=== PATIENT | male | born 1965 | race Caucasian/White ===

== ENCOUNTER 2017-12-30 03:38 | Inpatient (IN) | END 2018-01-09 19:53 | DRG 65 ==

== ENCOUNTER 2018-02-12 23:37 | Inpatient (IN) | END 2018-02-16 18:50 | disposition home or self-care (01) | DRG 871 ==

== ENCOUNTER 2018-03-04 02:22 | Inpatient (IN) | END 2018-03-06 16:00 | disposition home or self-care (01) | DRG 250 ==

== ENCOUNTER 2018-04-14 09:27 | Emergency (ER) | payer OTHER ==
[~2018-04-14] VITALS: Wt 84.2 kg
[~2018-04-14 09:27] MED LIST: ASPI-831 PO; ATOR-2 PO; BENA40TA56 PO; CALC-74 PO; CLOP75TA28 PO; GABA300C16 PO; GLIM4TAB PO; ISOS30TA67 PO; LEVO750T25 PO; METO-429 PO; PARO-37 PO; PIOG15TA67 PO; SITA1TBM7 PO
[2018-04-14 09:30] VITALS: BP 100/57; PULSE 82; RESP 18
[2018-04-14] MEDS ORDERED: OXYMETAZOLINE 0.05% 15 ML NAS SPRAY NASAL ONE (10:00)
--- NOTE | 2018-04-14 10:04 | ERD ---
ER Documentation Chief Complaint Chief Complaint EPISTAXIS, RIGHT NOSTRIL, NOT ACTIVELY BLEEDING NOW HPI 53-year-old male, with history of CVA, currently on anticoagulation, presents to the emergency department, complaining of sudden onset of right nasal bleeding. No history of trauma. The patient denies headaches, no runny nose, no cough. ROS All systems reviewed and are negative except as per history of present illness. Medications Home Meds Active Scripts Aspirin (Aspirin) 81 Mg Chew, 81 MG PO DAILY for 30 Days, #30 TAB 3 Refills Prov:SHARON MORENO 03/06/18 Metoprolol Tartrate* (Lopressor*) 50 Mg Tab, 50 MG PO BID for 30 Days, #60 TAB 3 Refills Prov:SHARON MORENO 03/06/18 Isosorbide Mononitrate* (Isosorbide Mononitrate*) 30 Mg Tab.er.24h, 30 MG PO DAILY for 30 Days, #30 3 Refills Prov:SHARON MORENO 03/06/18 Clopidogrel Bisulfate (Clopidogrel) 75 Mg Tablet, 75 MG PO DAILY for 30 Days, #30 TAB 3 Refills Prov:SHARON MORENO 03/06/18 Levofloxacin* (Levaquin*) 750 Mg Tablet, 750 MG PO DAILY for 2 Days, #2 TAB Prov:SHARON MORENO 03/06/18 Gabapentin* (Gabapentin*) 300 Mg Capsule, 300 MG PO BID for 30 Days, #60 CAP 1 Refill Prov:SHARON MORENO 03/06/18 Benazepril Hcl* (Benazepril Hcl*) 40 Mg Tablet, 40 MG PO DAILY, #30 TAB 3 Refills Prov:SHARON MORENO 03/06/18 Atorvastatin* (Atorvastatin*) 80 Mg Tablet, 80 MG PO QHS, #30 TAB 3 Refills Prov:SHARON MORENO 03/06/18 Calcium Carbonate-Vit D3-Minerals (Calcium 600 + D + Minerals) 1 Each Tablet, 1 TAB PO DAILY for 30 Days, #30 TAB Prov:SHARON MORENO 03/06/18 Paroxetine Hcl* (Paroxetine*) 20 Mg Tablet, 20 MG PO DAILY for 30 Days, #30 TAB 1 Refill Prov:SHARON MORENO 03/06/18 Reported Medications Pioglitazone Hcl* (Pioglitazone Hcl*) 15 Mg Tablet, 15 MG PO DAILY, TAB 02/13/18 Glimepiride* (Glimepiride*) 4 Mg Tablet, 4 MG PO WITH BREAKFAST, TAB 02/13/18 Sitagliptin Phos-Metformin Hcl (Janumet XR) 100-1,000 Mg Tbmp.24hr, 1 TAB PO WITH DINNER, #30 TAB 02/13/18 Allergies Allergies: Coded Allergies: No Known Allergy (Unverified , 02/13/18) PMhx/Soc History of Surgery: No Anesthesia Reaction: No Hx Neurological Disorder: Yes (CVA) Hx Respiratory Disorders: No Hx Cardiac Disorders: Yes (HTN) Hx Psychiatric Problems: No Hx Miscellaneous Medical Probl: No Hx Alcohol Use: No Hx Substance Use: No Hx Tobacco Use: No Physical Exam Vitals Vital Signs Date Temp Pulse Resp B/P (MAP) Pulse Ox O2 O2 Flow FiO2 Time Delivery Rate 04/14/18 97.8 82 18 100/57 99 09:30 (71) Physical Exam Const: No acute distress Head: Atraumatic Eyes: Normal Conjunctiva ENT: Right nostril with septal excoriation with mild bleeding. Normal External Ears and Mouth. Neck: Full range of motion. No meningismus. Resp: Clear to auscultation bilaterally Cardio: Regular rate and rhythm, no murmurs Abd: Soft, non tender, non distended. Normal bowel sounds Skin: No petechiae or rashes Back: No midline or flank tenderness Ext: No cyanosis, or edema Neur: Awake and alert Psych: Normal Mood and Affect Results 24 hrs Current Medications Medications Dose Sig/Alejandra Start Time Status Last (Trade) Ordered Route PRN Stop Time Admin Dose Reason Admin 2 spray ONCE ONCE 04/14/18 DC Oxymetazoline NASAL 10:00 HCl (Afrin 04/14/18 10:01 [place]) Procedures/MDM Differential diagnosis include but not limited to: trauma, vessel fragility, rhinosinusitis, neoplasm, coagulopathy. During the ED course the patient remained stable, no new complaints. The bleeding was controlled with a Rhino Rocket placed on the right nostril without complications. The patient is stable to be treated outpatient and will be discharged home with instructions to follow up in 48 hours for nasal packing removal. If symptoms persist, worsen or new symptoms develop, then patient should return to the ED immediately. Instructions explained and given directly by me to the patient with acknowledgment and demonstrated understanding. Disclaimer: Inadvertent spelling and grammatical errors are likely due to EHR/dictation software use and do not reflect on the overall quality of patient care. Also, please note that the electronic time recorded on this note does not necessarily reflect the actual time of the patient encounter. Departure Diagnosis: Primary Impression: Epistaxis Condition: Stable Additional Instructions: Thank you very much for allowing us to participate in your care. Your health and safety is our top priority at [facility]. Call your primary care doctor TOMORROW for an appointment during the next 2-4 days and bring all the information and medications prescribed. Have prescriptions filled and follow precisely the directions on the label. If the symptoms get worse and your provider is unavailable, return to the Emergency Department immediately. YANETH VALDIVIA MD Apr 14, 2018 10:04
== END 2018-04-14 10:22 | disposition home or self-care (01) ==
LOC: FTE 09:27
DX: R04.0 Epistaxis (principal); I10 Essential (primary) hypertension; Z79.82 Long term (current) use of aspirin; Z86.73 Personal history of transient ischemic attack (TIA), and cerebral infarction without residual deficits
CPT/HCPCS: 30903; Z7502; Z7610

== ENCOUNTER 2018-10-24 08:03 | Day surgery (SDC) | payer OTHER ==
[~2018-10-24] VITALS: Ht 182.9 cm; Wt 87.4 kg
[2018-10-24] MEDS ORDERED: METF500T24 PO (09:06)
[2018-10-24] MEDS ORDERED: METO-335 PO (09:06)
[2018-10-24] MEDS ORDERED: SITA100T11 PO (09:06)
[2018-10-24] MEDS ORDERED: GLIM2TAB PO (09:06)
[2018-10-24 09:16] VITALS: Ht 182.9 cm; Wt 87.4 kg
[2018-10-24 09:23] VITALS: BP 148/92; PULSE 89; RESP 22
[2018-10-24] MEDS ORDERED: PROPOFOL 60 ML ONE (09:23)
[2018-10-24] MEDS ORDERED: LIDOCAINE 100 MG SYRINGE ONE (09:23)
[2018-10-24] MEDS ORDERED: PROPOFOL 200 MG INJ ONE (09:23)
[2018-10-24] MEDS ORDERED: FENTAnyl 50 MCG/ML VIAL ONE (09:24)
--- NOTE | 2018-10-24 09:57 | PREAC ---
Date/Time of Note Date/Time of Note DATE: 10/24/18 TIME: 09:20 Anesthesia Eval and Record Evaluation Time Pre-Procedure Interview DATE: 10/24/18 TIME: 09:20 Age 53 Sex male NPO: 8 hrs Preoperative diagnosis REFLUX, CHRONIC DIARRHEA Planned procedure EGD, COLONOSCOPY Past Medical History Past Medical History: Includes Cardio: HTN, Dyslipidemia, CAD Endo: Diabetes (FBS:95) Neuro: CVA GI: Morbid obesity Surgery & Anesthesia Issues No known issue Meds Anticoagulation: No Beta Issa within 24 hr: No Reason Beta Issa not given: Pt. not on B-Issa Active Scripts Aspirin (Aspirin) 81 Mg Chew, 81 MG PO DAILY for 30 Days, #30 TAB 3 Refills Prov:SHARON MORENO 03/06/18 Isosorbide Mononitrate* (Isosorbide Mononitrate*) 30 Mg Tab.er.24h, 30 MG PO DAILY for 30 Days, #30 3 Refills Prov:SHARON MORENO 03/06/18 Clopidogrel Bisulfate (Clopidogrel) 75 Mg Tablet, 75 MG PO DAILY for 30 Days, #30 TAB 3 Refills Prov:SHARON MORENO 03/06/18 Gabapentin* (Gabapentin*) 300 Mg Capsule, 300 MG PO BID for 30 Days, #60 CAP 1 Refill Prov:SHARON MORENO 03/06/18 Atorvastatin* (Atorvastatin*) 80 Mg Tablet, 80 MG PO QHS, #30 TAB 3 Refills Prov:SHARON MORENO 03/06/18 Calcium Carbonate-Vit D3-Minerals (Calcium 600 + D + Minerals) 1 Each Tablet, 1 TAB PO DAILY for 30 Days, #30 TAB Prov:SHARON MORENO 03/06/18 Paroxetine Hcl* (Paroxetine*) 20 Mg Tablet, 20 MG PO DAILY for 30 Days, #30 TAB 1 Refill Prov:SHARON MORENO 03/06/18 Reported Medications Metformin Hcl* (Metformin Hcl*) 500 Mg Tablet, 500 MG PO WITH BREAKFAST DINNE, #60 TAB 10/24/18 Glimepiride* (Glimepiride*) 2 Mg Tablet, 2 MG PO BID, TAB 10/24/18 Metoprolol Succinate* (Toprol XL*) 25 Mg Tab.sr.24h, 25 MG PO DAILY, #30 TAB 10/24/18 Sitagliptin* (Januvia*) 100 Mg Tablet, 100 MG PO DAILY, #30 TAB 10/24/18 Discontinued Reported Medications Pioglitazone Hcl* (Pioglitazone Hcl*) 15 Mg Tablet, 15 MG PO DAILY, TAB 02/13/18 Glimepiride* (Glimepiride*) 4 Mg Tablet, 4 MG PO WITH BREAKFAST, TAB 02/13/18 Sitagliptin Phos-Metformin Hcl (Janumet XR) 100-1,000 Mg Tbmp.24hr, 1 TAB PO WITH DINNER, #30 TAB 02/13/18 Discontinued Scripts Metoprolol Tartrate* (Lopressor*) 50 Mg Tab, 50 MG PO BID for 30 Days, #60 TAB 3 Refills Prov:SHARON MORENO 03/06/18 Levofloxacin* (Levaquin*) 750 Mg Tablet, 750 MG PO DAILY for 2 Days, #2 TAB Prov:SHARON MORENO 03/06/18 Benazepril Hcl* (Benazepril Hcl*) 40 Mg Tablet, 40 MG PO DAILY, #30 TAB 3 Refills Prov:SHARON MORENO 03/06/18 Meds reviewed: Yes Allergies Coded Allergies: No Known Allergy (Unverified , 02/13/18) Allergies Reviewed: Yes Labs/Studies Labs Reviewed: Reviewed by anesthesiologist test: Negative Pre-procedure Exam Airway: Adequate mouth opening, Adequate thyromental dist Mallampati: Mallampati II Teeth: Normal Lung: Normal Heart: Normal ASA Physical Status ASA physical status: 3 Emergency: None Planned Anesthetic General/MAC: MAC Planned Pain Management Parenteral pain med Pre-operative Attestations Prior to commencing anesthesia and surgery, the patient was re-evaluated, there was verification of: *The patient's identity *The results of appropriate recent lab work and preoperative vital signs *The above evaluation not changing prior to induction *Anesthetic plan, risk benefits, alternative and complications discussed with patient/family; questions answered; patient/family understands, accepts and wishes to proceed. Wm Naranjo M.D. Oct 24, 2018 09:57
--- NOTE | 2018-10-24 09:58 | PAC ---
Date/Time of Note Date/Time of Note DATE: 10/24/18 TIME: 09:57 Post-Anesthesia Notes Post-Anesthesia Note Last documented vital signs HR 75 RR 14 BP 114/65 T 98.2 Activity: WNL Respiratory function: WNL Cardiovascular function: WNL Mental status: Baseline Pain reasonably controlled: Yes Hydration appropriate: Yes Nausea/Vomiting absent: Yes Wm Naranjo M.D. Oct 24, 2018 09:58
[2018-10-24 10:21] VITALS: BP 125/78; PULSE 80; RESP 16
== END 2018-10-24 16:12 | disposition home or self-care (01) ==
LOC: GIL 08:03
PROVIDERS: ATTEND Internal Medicine Gastroenterology
DX: K64.8 Other hemorrhoids (principal); K21.0 Gastro-esophageal reflux disease with esophagitis; K29.30 Chronic superficial gastritis without bleeding; I10 Essential (primary) hypertension; E11.9 Type 2 diabetes mellitus without complications; E78.5 Hyperlipidemia, unspecified; I25.10 Atherosclerotic heart disease of native coronary artery without angina pectoris; Z86.73 Personal history of transient ischemic attack (TIA), and cerebral infarction without residual deficits; Z79.82 Long term (current) use of aspirin; Z79.84 Long term (current) use of oral hypoglycemic drugs
CPT/HCPCS: 43239; 45380; 82962; 88305; 88312; J2001; J3010; Z7610